=== PATIENT | female | born 2000 | race African-American/Black ===

== ENCOUNTER 2022-03-31 22:54 | Emergency (ER) | payer MEDICAID ==
[2022-03-31 22:56] VITALS: TEMP 97.5
[2022-03-31] MEDS ORDERED: PROAIR HFA0.09 MG/AC IH (23:09)
[2022-03-31] MEDS ORDERED: CLEVER CHOICE1 EA20 MC (23:09)
[2022-03-31 23:39] VITALS: BP 143/92; PULSE 85
== END 2022-03-31 23:40 | disposition home or self-care (01) ==
LOC: COL.ER 22:54
DX: J45.909 Unspecified asthma, uncomplicated (principal)
CPT/HCPCS: J8540

== ENCOUNTER 2022-05-03 03:10 | Emergency (ER) | payer MEDICAID ==
[~2022-05-03] VITALS: Ht 177.8 cm; Wt 79.5 kg
[~2022-05-03 03:10] MED LIST: CLEVER CHOICE1 EA20 MC; PROAIR HFA0.09 MG/AC IH
[2022-05-03 04:37] LABS: BASO % 0.4 % (0.0-2.0); EOS # 0.1 K/mm3 (0.0-0.7); EOS % 1.4 % (0.0-4.0); GRAN # 4.4 K/mm3 (1.4-6.5); HEMATOCRIT 37.9 % (35.0-45.0); HEMOGLOBIN 13.2 g/dl (12.0-15.0); LYMPH # 0.7 K/mm3 (1.2-3.4); LYMPH % 12.3 % (20.0-51.0); MEAN CELL VOLUME 91 fl (80.0-95.0); MEAN CORPUSCULAR HEMOGLOBIN 32 pg (26-32); MEAN CORPUSCULAR HGB CONC 35 g/dl (33.0-37.0); MEAN PLATELET VOLUME 10.7 fl (7.4-10.4); MONO # 0.4 K/mm3 (0.1-0.6); MONO % 6.7 % (1.7-9.3); PLATELET COUNT 169 K/mm3 (130-400); RED BLOOD COUNT 4.19 M/mm3 (4.10-5.30); REDCELL DISTRIBUTION WIDTH-CV 12.4 % (11.5-14.5)
[2022-05-03 04:53] LABS: ALANINE AMINOTRANSFERASE 8 U/L (0-55); ALBUMIN 3.9 gm/dL (3.5-5.0); ALKALINE PHOSPHATASE 72 U/L (40-150); ANION GAP 15 mmol/L (7-16); AST,SGOT 11 U/L (5-34); BILIRUBIN,TOTAL 0.8 mg/dL (0.2-1.2); BLOOD UREA NITROGEN 9 mg/dL (8-21); CALCIUM 9.1 mg/dL (8.4-10.2); CARBON DIOXIDE 16 mmol/L (22-29); CHLORIDE 108 mmol/L (98-107); CREATININE, serum 0.86 mg/dL (0.57-1.11); GLUCOSE 106 mg/dL (70-99); POTASSIUM 3.2 mmol/L (3.5-4.5); SODIUM 139 mmol/L (136-145); TOTAL PROTEIN 7.6 gm/dL (6.2-8.1)
[2022-05-03 05:01] LABS: TROPONIN-I < 0.010 ng/mL (0.00-0.033)
[2022-05-03 05:29] VITALS: BP 118/84; PULSE 106; TEMP 99.7
[2022-05-03] MEDS ORDERED: PREDNISONE20 MG PO (05:31)
== END 2022-05-03 05:44 | disposition home or self-care (01) ==
LOC: COL.ER 03:10
PROVIDERS: Emergency Medicine
DX: J45.901 Unspecified asthma with (acute) exacerbation (principal); R07.89 Other chest pain; Z79.51 Long term (current) use of inhaled steroids; Z20.822 Contact with and (suspected) exposure to COVID-19
CPT/HCPCS: J7030; J7512

== ENCOUNTER 2022-05-04 12:04 | Inpatient (IN) | payer MEDICAID ==
[~2022-05-04] VITALS: Ht 177.8 cm; Wt 69.7 kg
[~2022-05-04 12:04] MED LIST changes: +PREDNISONE20 MG PO
[2022-05-04 13:56] LABS: BASO % 0.4 % (0.0-2.0); GRAN # 4.2 K/mm3 (1.4-6.5); GRAN % 73.8 % (42.2-75.2); HEMOGLOBIN 12.8 g/dl (12.0-15.0); LYMPH # 0.9 K/mm3 (1.2-3.4); LYMPH % 15.8 % (20.0-51.0); MEAN CELL VOLUME 91 fl (80.0-95.0); MEAN CORPUSCULAR HEMOGLOBIN 32 pg (26-32); MEAN CORPUSCULAR HGB CONC 35 g/dl (33.0-37.0); MEAN PLATELET VOLUME 10.9 fl (7.4-10.4); MONO # 0.5 K/mm3 (0.1-0.6); MONO % 9.6 % (1.7-9.3); PLATELET COUNT 159 K/mm3 (130-400); RED BLOOD COUNT 4.06 M/mm3 (4.10-5.30)
[2022-05-04 14:02] LABS: ALBUMIN 3.8 gm/dL (3.5-5.0); BILIRUBIN,TOTAL 0.5 mg/dL (0.2-1.2); CALCIUM 8.9 mg/dL (8.4-10.2); CREATININE, serum 0.87 mg/dL (0.57-1.11); POTASSIUM 3.3 mmol/L (3.5-4.5); TOTAL PROTEIN 7.1 gm/dL (6.2-8.1)
[2022-05-04 16:09] VITALS: BP 125/63; PULSE 137; TEMP 101.2
--- NOTE | 2022-05-04 18:57 | NUR ---
Pt arrived to the unit, she is A/O x4. Her breathing is even and unlabored on 2L O2 via NC. Wet cough present. Pt is febrile, DINO Banks notified. PRN medications ordered. Pt reports generalized body aches. IVF started. No needs at this time. Call light within reach.
[2022-05-04 19:33] VITALS: BP 121/52; PULSE 117; TEMP 98.7
--- NOTE | 2022-05-04 21:14 | NUR ---
pt resting in bed, easily awake for assessment. heart rate ranging from 90-110. pt not on oxygen. LR infusing into right ac. pt denies any needs at this time. call light in reach.
[2022-05-04 21:27] LABS: MUCOUS Present (NOT PRESENT); URINE BACTERIA Rare /hpf (NONE SEEN); URINE RBC 0-2 /hpf (0-2); URINE WBC 0-2 /hpf (0-2)
[2022-05-04 21:30] LABS: URINE APPEARANCE Hazy (CLEAR/HAZY); URINE BLOOD Negative (NEGATIVE); URINE COLOR Yellow (YELLOW); URINE GLUCOSE Negative (NEGATIVE); URINE KETONE Negative (NEGATIVE); URINE NITRATE Negative (NEGATIVE); URINE PROTEIN(semi-quant) Negative (NEGATIVE); URINE UROBILINOGEN 0.2 (NEGATIVE)
[2022-05-04 21:32] LABS: COLLECTION METHOD CLEAN CATCH
[2022-05-04 23:11] VITALS: BP 121/64; PULSE 119; TEMP 98.2
[2022-05-05] VITALS (7 sets, daily range): BP systolic 127–138; BP diastolic 68–86; PULSE 74–119; TEMP 98–98.4
--- NOTE | 2022-05-05 05:21 | NUR ---
pt remained afebrile through the night and heart rate stable in the 70s bpm. droplet precautions are in place. cough is still present.
[2022-05-05 06:49] LABS: GRAN # 3.2 K/mm3 (1.4-6.5); GRAN % 88.6 % (42.2-75.2); HEMOGLOBIN 12.8 g/dl (12.0-15.0); LYMPH # 0.3 K/mm3 (1.2-3.4); LYMPH % 8.6 % (20.0-51.0); MEAN CELL VOLUME 91 fl (80.0-95.0); MEAN CORPUSCULAR HEMOGLOBIN 32 pg (26-32); MEAN CORPUSCULAR HGB CONC 35 g/dl (33.0-37.0); MEAN PLATELET VOLUME 11.4 fl (7.4-10.4); MONO # 0.1 K/mm3 (0.1-0.6); MONO % 2.5 % (1.7-9.3); PLATELET COUNT 180 K/mm3 (130-400); RED BLOOD COUNT 4.02 M/mm3 (4.10-5.30); REDCELL DISTRIBUTION WIDTH-CV 13.1 % (11.5-14.5)
[2022-05-05 06:56] LABS: HEMATOCRIT 36.6 % (35.0-45.0)
[2022-05-05 07:00] LABS: CREATININE, serum 0.72 mg/dL (0.57-1.11); POTASSIUM 4.4 mmol/L (3.5-4.5)
--- NOTE | 2022-05-05 08:00 | NUR ---
Patient sleeping in bed, easily awakened with verbal command. A&Ox4, drowsy. VSS. IV CDI, fluids infusing. Denies pain and discomfort. Droplet precautions in place. Call light within reach
--- NOTE | 2022-05-05 20:23 | NUR ---
Patient assessed around 2009. Alert and oriented, and able to make needs known. Denies having pain and discomfort. Peripheral INT to right AC. Sinus tachycardia on telemetry, recently had nebulizer treatment and coughing spell. Reports SOB and dyspnea with any exertion. On oxygen at 1 L/min via NC for comfort. Moist cough, unable to produce sputum. Voices no questions, needs, or concerns at this time. In bed with call light within reach.
[2022-05-06 03:43] VITALS: BP 136/84; PULSE 101; TEMP 98.5
--- NOTE | 2022-05-06 03:53 | NUR ---
CALLED BY RN FOR PRN TX, PT WENT TO RESTROOM AND BECAME SOA.
--- NOTE | 2022-05-06 06:08 | NUR ---
Patient continues to have SOB, especially with any exertion. Continues on oxygen at 2 L/min via NC. RT gave breathing treatments as requested. Patient's HR did go up to 160s at times, but was related to activity and decreased back down at rest. DINO Banks aware. In bed with call light within reach. Voices no questions, needs, or concerns at this time.
[2022-05-06 07:12] VITALS: BP 133/77; PULSE 84; TEMP 97.4
[2022-05-06 07:16] LABS: GRAN # 5.3 K/mm3 (1.4-6.5); GRAN % 87.5 % (42.2-75.2); HEMATOCRIT 37.4 % (35.0-45.0); HEMOGLOBIN 12.2 g/dl (12.0-15.0); LYMPH # 0.4 K/mm3 (1.2-3.4); LYMPH % 6.4 % (20.0-51.0); MEAN CELL VOLUME 94 fl (80.0-95.0); MEAN CORPUSCULAR HEMOGLOBIN 31 pg (26-32); MEAN CORPUSCULAR HGB CONC 33 g/dl (33.0-37.0); MEAN PLATELET VOLUME 11.1 fl (7.4-10.4); MONO # 0.4 K/mm3 (0.1-0.6); MONO % 5.8 % (1.7-9.3); PLATELET COUNT 192 K/mm3 (130-400); REDCELL DISTRIBUTION WIDTH-CV 12.8 % (11.5-14.5)
[2022-05-06 07:30] LABS: CALCIUM 8.8 mg/dL (8.4-10.2); CREATININE, serum 0.74 mg/dL (0.57-1.11); POTASSIUM 4.1 mmol/L (3.5-4.5)
--- NOTE | 2022-05-06 09:00 | NUR ---
Patient is lying on her bed and using her cell phone. She is alert and oriented x4. Denies any pain or discomfort, but says she feels short of breath while using bathroom, or even at rest sometimes. Patient is on 2L of oxygen via NC and in droplet precaution. Call light is on place, bed is on lowest position.
--- NOTE | 2022-05-06 09:37 | NUR ---
Crusher Assembler met with Patient at bedside to conduct Care Managment Assessment and discuss discharge Planning. Patient lives in [place], [place] with a room mate. PAtient denies being established with PCP and endorses [facility] for insurance. Patient states that her Mother, Mahi P: [phone] is her best familial point of contact. Patient preferres [facility] in [place] for pharmacy servies. Patient denies the use of O2 prior to admission. Patient is to discharge home. Discharge Plan: Home with self-provided transportation.
[2022-05-06 11:20] VITALS: BP 137/86; TEMP 98.7
[2022-05-06 15:33] VITALS: BP 140/89; PULSE 80; TEMP 97.8
[2022-05-06 19:58] VITALS: BP 126/65; PULSE 64; TEMP 98.3
--- NOTE | 2022-05-06 22:17 | NUR ---
Patient assessed around 1999. Denies having pain and discomfort. Reports she continues to have some SOB with exertion, but overall feeing much better with her breathing today. Continues on oxygen at 2 L/min via NC. Voices no questions, needs, or concenrs at this time. In bed with call light within reach.
[2022-05-07 00:23] VITALS: BP 136/86; PULSE 71; TEMP 97.8
[2022-05-07 04:30] VITALS: BP 130/76; PULSE 96; TEMP 98.2
--- NOTE | 2022-05-07 05:28 | NUR ---
Patient remains on room air and reports breathing much better this morning. Voices no questions, needs, or concerns at this time. In bed with call light within reach.
[2022-05-07 06:50] LABS: HEMATOCRIT 37.9 % (35.0-45.0); HEMOGLOBIN 12.7 g/dl (12.0-15.0); MEAN CELL VOLUME 93 fl (80.0-95.0); MEAN CORPUSCULAR HEMOGLOBIN 31 pg (26-32); MEAN CORPUSCULAR HGB CONC 34 g/dl (33.0-37.0); MEAN PLATELET VOLUME 11.5 fl (7.4-10.4); PLATELET COUNT 188 K/mm3 (130-400); RED BLOOD COUNT 4.07 M/mm3 (4.10-5.30); REDCELL DISTRIBUTION WIDTH-CV 12.8 % (11.5-14.5)
[2022-05-07 07:03] LABS: CALCIUM 8.9 mg/dL (8.4-10.2); CREATININE, serum 0.71 mg/dL (0.57-1.11); POTASSIUM 4.1 mmol/L (3.5-4.5)
[2022-05-07 08:03] LABS: BAND 19 % (0-10); LYMPHOCYTE 6 % (20.0-51.0); NEUTROPHILS 71 % (42.0-75.2); NUCLEATED RED BLOOD CELL 1 (0-6); PLATELET ESTIMATE NORMAL (NORMAL)
[2022-05-07 08:25] VITALS: BP 130/71; PULSE 90; TEMP 98
[2022-05-07] MEDS ORDERED: PULMICORT180 MCG/Ac IH (09:18)
[2022-05-07] MEDS ORDERED: PREDNISONE20 MG PO (09:19)
--- NOTE | 2022-05-07 11:58 | NUR ---
Patient is discharged home. Reviewed discharge instruction with patient about her disease control, followups, medications, and smoking cessation. IV was patent on discontinuation. Patient denies any pain, discomfort, or SOB. Patient is escorted out to her vehicle by nurses.
[2022-05-08] MEDS ORDERED: MUCINEX1200 MG PO (12:09)
== END 2022-05-07 11:20 | disposition home or self-care (01) | DRG 202 ==
LOC: COL.ER 12:04 → MEDICAL 14:15 → EDBEDREQTM 15:14 → MEDICAL 21:00
PROVIDERS: Emergency Medicine; Physician Assistant; ADMIT Student in an Organized Health Care Education/Training Program
DX: J45.901 Unspecified asthma with (acute) exacerbation (principal); J96.01 Acute respiratory failure with hypoxia; Z20.822 Contact with and (suspected) exposure to COVID-19; F17.290 Nicotine dependence, other tobacco product, uncomplicated; B34.8 Other viral infections of unspecified site; Z79.51 Long term (current) use of inhaled steroids; Z79.52 Long term (current) use of systemic steroids
CPT/HCPCS: OP; G0378; J1650; J2920; J3475; J7120

== ENCOUNTER 2022-05-07 22:20 | Observation (INO) | payer MEDICAID ==
[~2022-05-07] VITALS: Ht 177.8 cm; Wt 62.5 kg
[~2022-05-07 22:20] MED LIST changes: +PULMICORT180 MCG/Ac IH
[2022-05-07 23:03] LABS: BASO % 0.1 % (0.0-2.0); GRAN % 79.4 % (42.2-75.2); HEMATOCRIT 39.7 % (35.0-45.0); HEMOGLOBIN 13.9 g/dl (12.0-15.0); LYMPH # 1.9 K/mm3 (1.2-3.4); MEAN CELL VOLUME 90 fl (80.0-95.0); MEAN CORPUSCULAR HEMOGLOBIN 32 pg (26-32); MEAN CORPUSCULAR HGB CONC 35 g/dl (33.0-37.0); MEAN PLATELET VOLUME 10.8 fl (7.4-10.4); MONO # 0.8 K/mm3 (0.1-0.6); MONO % 6.1 % (1.7-9.3); PLATELET COUNT 202 K/mm3 (130-400); REDCELL DISTRIBUTION WIDTH-CV 12.8 % (11.5-14.5)
[2022-05-07 23:23] LABS: ALBUMIN 3.9 gm/dL (3.5-5.0); BILIRUBIN,TOTAL 0.5 mg/dL (0.2-1.2); C-REACTIVE PROTEIN 0.39 mg/dL (0.00-0.50); CALCIUM 9.1 mg/dL (8.4-10.2); CREATININE, serum 0.8 mg/dL (0.57-1.11); POTASSIUM 3.5 mmol/L (3.5-4.5); TOTAL PROTEIN 7.5 gm/dL (6.2-8.1)
--- NOTE | 2022-05-08 12:06 | NUR ---
Pt. arrived to the floor. Pt. is A&OX3, assessment complete. INT to rt. ac patent. Pt. denies further needs, call light within reach.
[2022-05-08] MEDS ORDERED: MUCINEX1200 MG PO (12:09)
[2022-05-08 12:20] VITALS: BP 123/88; TEMP 97.8
[2022-05-08 12:29] VITALS: PULSE 53
[2022-05-08 15:10] VITALS: BP 132/82; PULSE 52; TEMP 97.7
--- NOTE | 2022-05-08 19:53 | NUR ---
PT APPEARS ANXIOUS AT THIS TIME. UPON PRESENTATION TO THE ROOM PT WAS ROLLING OVER TO GO TO SLEEP. ASKED IF SHE WOULD BE WILLING TO TAKE TREATMENTS AND SHE STATED YES.
--- NOTE | 2022-05-08 20:04 | NUR ---
"respiratory in w pt providing breathing tx. pt seems to be very anxious, complains of chest pain. respiratory instructed pt to use pillow to splint when coughing to relieve pain. vss and tele in place. |NT to right ac. droplet precautions implemented. no other needs at this time. call light in reach."
[2022-05-08 20:05] VITALS: BP 117/86; PULSE 79; TEMP 97.8
--- NOTE | 2022-05-08 20:46 | NUR ---
pt mother called saying that pt spoke to her and seems to be in distress, administered morphine to help w pain.
[2022-05-08 21:24] LABS: COLLECTION METHOD CLEAN CATCH
[2022-05-08 21:31] LABS: URINE APPEARANCE Clear (CLEAR/HAZY); URINE BLOOD Negative (NEGATIVE); URINE COLOR Yellow (YELLOW); URINE GLUCOSE Negative (NEGATIVE); URINE KETONE 1+ (NEGATIVE); URINE NITRATE Negative (NEGATIVE); URINE PROTEIN(semi-quant) Negative (NEGATIVE); URINE UROBILINOGEN 0.2 E.U/dL (0.2-1.0)
[2022-05-08 21:38] LABS: TRICYCLIC ANTIDEPRESS URINE NEGATIVE
[2022-05-08 21:46] LABS: MUCOUS Present (NOT PRESENT); URINE BACTERIA None Seen /hpf (NONE SEEN); URINE RBC 0-2 /hpf (0-2)
--- NOTE | 2022-05-08 23:53 | NUR ---
called report to MINOR guy at [facility] in [place].
[2022-05-08 23:59] VITALS: BP 133/94; PULSE 67; TEMP 97.3
--- NOTE | 2022-05-09 00:58 | NUR ---
EMS here for pt, transfer orders given.
== END 2022-05-09 01:00 | disposition critical access hospital (66) ==
LOC: COL.ER 22:20 → SURG 05-08 02:55
PROVIDERS: Emergency Medicine; Nurse Practitioner Family; Student in an Organized Health Care Education/Training Program; ADMIT Internal Medicine
DX: J98.2 Interstitial emphysema (principal); J45.901 Unspecified asthma with (acute) exacerbation; B34.8 Other viral infections of unspecified site; Z20.822 Contact with and (suspected) exposure to COVID-19
CPT/HCPCS: G0378; J1100; J2060; J2270; J2930; J3010; J7030; Q9967

== ENCOUNTER 2023-02-25 13:53 | Emergency (ER) | payer OTHER ==
[~2023-02-25] VITALS: Ht 182.9 cm; Wt 81.8 kg
[~2023-02-25 13:53] MED LIST changes: +ALBUTEROL1.25 MG/3 IH; +BREO ELLIPTA 21 EACH PO; +FLAGYL500 MG PO; +LEXAPRO 5MG5 MG PO; +MUCINEX1200 MG PO; +NATURAL IRON65 MG; +PREDNISONE50 MG PO; +SPIRIVA RE2.5 MCG/Ac IH; +TRELEGY ELLIPT1 EAC1 IH; +VENTOLIN0.09 MG IH; +ZOFRAN ODT4 MG PO
[2023-02-25 14:02] VITALS: TEMP 98.3
[2023-02-25] MEDS ORDERED: predniSONE 50 MG TAB PO ONE (15:30)
[2023-02-25] MEDS ORDERED: Albuterol 90 MCG/PUFF 8 GM MDI IH ONE (15:30)
[2023-02-25 15:57] VITALS: BP 114/71; PULSE 100
[2023-02-26] MEDS ORDERED: PHENERGAN25 MG RC (11:44)
[2023-02-26] MEDS ORDERED: IPRATROPIUM BROM3 M1 IH (16:52)
== END 2023-02-25 15:57 | disposition home or self-care (01) ==
LOC: COL.ER 13:53
DX: O98.512 Other viral diseases complicating pregnancy, second trimester (principal); U07.1 COVID-19; O26.892 Other specified pregnancy related conditions, second trimester; R06.02 Shortness of breath; R06.2 Wheezing; R07.89 Other chest pain; R05.9 Cough, unspecified; R09.81 Nasal congestion; Z87.891 Personal history of nicotine dependence; Z3A.16 16 weeks gestation of pregnancy
CPT/HCPCS: J7512

== ENCOUNTER 2023-02-26 09:04 | Emergency (ER) | payer OTHER ==
[~2023-02-26] VITALS: Ht 182.9 cm; Wt 84.1 kg
[2023-02-26 09:49] LABS: BASO % 0.2 % (0.0-2.0); EOS # 0.1 K/mm3 (0.0-0.7); EOS % 0.6 % (0.0-4.0); GRAN # 8.3 K/mm3 (1.4-6.5); GRAN % 78.4 % (42.2-75.2); HEMOGLOBIN 12.1 g/dl (12.0-15.0); LYMPH # 1.5 K/mm3 (1.2-3.4); LYMPH % 13.8 % (20.0-51.0); MEAN CELL VOLUME 92 fl (80.0-95.0); MEAN CORPUSCULAR HEMOGLOBIN 32 pg (26-32); MEAN CORPUSCULAR HGB CONC 34 g/dl (33.0-37.0); MEAN PLATELET VOLUME 10.4 fl (7.4-10.4); MONO # 0.7 K/mm3 (0.1-0.6); MONO % 6.6 % (1.7-9.3); PLATELET COUNT 217 K/mm3 (130-400); RED BLOOD COUNT 3.81 M/mm3 (4.10-5.30); REDCELL DISTRIBUTION WIDTH-CV 12.9 % (11.5-14.5)
[2023-02-26 09:51] LABS: HEMATOCRIT 35.2 % (35.0-45.0)
[2023-02-26 10:04] LABS: ALBUMIN 3.1 gm/dL (3.5-5.0); BILIRUBIN,TOTAL 0.5 mg/dL (0.2-1.2); CALCIUM 9.2 mg/dL (8.4-10.2); CREATININE, serum 0.6 mg/dL (0.57-1.11); POTASSIUM 3.4 mmol/L (3.5-4.5); TOTAL PROTEIN 6.8 gm/dL (6.2-8.1)
[2023-02-26 10:25] LABS: COLLECTION METHOD CLEAN CATCH
[2023-02-26 10:41] LABS: URINE APPEARANCE Clear (CLEAR/HAZY); URINE BLOOD Negative (NEGATIVE); URINE COLOR Amber (YELLOW); URINE GLUCOSE Negative (NEGATIVE); URINE KETONE 4+ (NEGATIVE); URINE NITRATE Negative (NEGATIVE); URINE PROTEIN(semi-quant) Negative (NEGATIVE); URINE UROBILINOGEN 0.2 E.U/dL (0.2-1.0)
[2023-02-26 10:42] LABS: MUCOUS Present (NOT PRESENT); URINE RBC 0-2 /hpf (0-2)
[2023-02-26] MEDS ORDERED: PHENERGAN25 MG RC (11:44)
[2023-02-26 12:08] VITALS: BP 129/72; PULSE 87; TEMP 98.4
[2023-02-26] MEDS ORDERED: IPRATROPIUM BROM3 M1 IH (16:52)
== END 2023-02-26 12:08 | disposition home or self-care (01) ==
LOC: COL.ER 09:04
PROVIDERS: Emergency Medicine
DX: O21.9 Vomiting of pregnancy, unspecified (principal); O98.512 Other viral diseases complicating pregnancy, second trimester; U07.1 COVID-19; R53.81 Other malaise; R53.1 Weakness; O99.282 Endocrine, nutritional and metabolic diseases complicating pregnancy, second trimester; E86.0 Dehydration
CPT/HCPCS: J2405; J7120

== ENCOUNTER 2023-02-26 14:57 | Emergency (ER) | payer OTHER ==
[~2023-02-26] VITALS: Ht 182.9 cm; Wt 84.1 kg
[~2023-02-26 14:57] MED LIST changes: +PHENERGAN25 MG RC
[2023-02-26 15:19] VITALS: TEMP 98.7
[2023-02-26] MEDS ORDERED: IPRATROPIUM BROM3 M1 IH (16:52)
[2023-02-26 16:57] VITALS: BP 133/67; PULSE 110
== END 2023-02-26 17:08 | disposition home or self-care (01) ==
LOC: COL.ER 14:57
DX: O99.512 Diseases of the respiratory system complicating pregnancy, second trimester (principal); J45.901 Unspecified asthma with (acute) exacerbation; O98.512 Other viral diseases complicating pregnancy, second trimester; U07.1 COVID-19; Z3A.16 16 weeks gestation of pregnancy; Z79.899 Other long term (current) drug therapy
CPT/HCPCS: J2930; J7030

== ENCOUNTER 2023-06-12 07:04 | Emergency (ER) | payer OTHER ==
[~2023-06-12] VITALS: Ht 182.9 cm; Wt 97.7 kg
[~2023-06-12 07:04] MED LIST changes: +IPRATROPIUM BROM3 M1 IH
[2023-06-12 07:10] VITALS: TEMP 98.5
--- NOTE | 2023-06-12 07:25 | NUR ---
THIS RN AT BEDSIDE. APPLYING FHR MONITOR/TOCO. PT DENIES ANY VAGINAL BLEEDING, LEAKING OF FLUID, OR REGULAR CONTRACTIONS. PT REPORTS GOOD MOVEMENT. PT DOES REPORT HAVING NAUSEA AND VOMITING 06/11/23. PT STATES SHE HAS NOT EATEN OR HAD AN ADEQUATE AMOUNT OF WATER INTAKE. THIS RN ADVISES PT TO INCREASE FLUID INTAKE AND EAT SMALL FREQUENT SNACKS IF DISCHARGED FROM ER.
[2023-06-12] MEDS ORDERED: NS 1,000 ML IV ONE (07:45)
[2023-06-12 07:49] LABS: BASO % 0.2 % (0.0-2.0); EOS # 0.3 K/mm3 (0.0-0.7); EOS % 3.4 % (0.0-4.0); GRAN # 6.9 K/mm3 (1.4-6.5); GRAN % 71.8 % (42.2-75.2); HEMATOCRIT 30.8 % (35.0-45.0); HEMOGLOBIN 9.9 g/dl (12.0-15.0); LYMPH # 1.6 K/mm3 (1.2-3.4); LYMPH % 16.4 % (20.0-51.0); MEAN CELL VOLUME 92 fl (80.0-95.0); MEAN CORPUSCULAR HEMOGLOBIN 30 pg (26-32); MEAN CORPUSCULAR HGB CONC 32 g/dl (33.0-37.0); MONO # 0.7 K/mm3 (0.1-0.6); MONO % 7.2 % (1.7-9.3); PLATELET COUNT 240 K/mm3 (130-400); RED BLOOD COUNT 3.34 M/mm3 (4.10-5.30); REDCELL DISTRIBUTION WIDTH-CV 12.7 % (11.5-14.5)
[2023-06-12 08:04] LABS: BILIRUBIN,TOTAL 0.5 mg/dL (0.2-1.2); CALCIUM 8.7 mg/dL (8.4-10.2); CREATININE, serum 0.64 mg/dL (0.57-1.11); TOTAL PROTEIN 6.9 g/dl (6.2-8.1)
[2023-06-12 09:20] VITALS: BP 123/71; PULSE 80
== END 2023-06-12 09:20 | disposition home or self-care (01) ==
LOC: COL.ER 07:04
PROVIDERS: Personal Emergency Response Attendant
DX: O99.891 Other specified diseases and conditions complicating pregnancy (principal); R55 Syncope and collapse; O99.281 Endocrine, nutritional and metabolic diseases complicating pregnancy, first trimester; E86.0 Dehydration; Z3A.30 30 weeks gestation of pregnancy
CPT/HCPCS: J7030